=== PATIENT | male | born 1970 | race Caucasian/White ===

== ENCOUNTER → 2025-03-19 | Outpatient (REF) | payer BC ==
[~2025-03-19] MED LIST: AMLO1TAB24; BISO5TAB14; LISI10TA22; TEST200I14
[2025-03-19 15:29] LABS: PLATELET COUNT, AUTOMATED 216 10^3/uL (150-450)
== END ==
LOC: M SMT 14:51
PROVIDERS: ATTEND Physician Assistant
DX: E29.1 Testicular hypofunction (principal)